=== PATIENT | female | born 1945 | race Caucasian/White ===

== ENCOUNTER → 2023-11-28 14:15 | Outpatient (REF) | payer MEDICARE, OTHER, SELFPAY | LOC: WDC 14:15 | PROVIDERS: ATTENDING PHYSICIAN Obstetrics & Gynecology; FAMILY PHYSICIAN Internal Medicine | DX: Z12.31 Encounter for screening mammogram for malignant neoplasm of breast (principal) | CPT/HCPCS: 77063; 77067 ==

== ENCOUNTER → 2024-09-16 09:48 | Outpatient (REF) | payer MEDICARE, OTHER, SELFPAY | LOC: RAD 09:48 | PROVIDERS: ATTENDING PHYSICIAN Internal Medicine | DX: R10.9 Unspecified abdominal pain (principal); R07.9 Chest pain, unspecified | CPT/HCPCS: 71046; 76700 ==

== ENCOUNTER → 2024-10-15 09:50 | Outpatient (REF) | payer MEDICARE, OTHER, SELFPAY | LOC: RST 09:50 | PROVIDERS: ATTENDING PHYSICIAN Internal Medicine | DX: K21.9 Gastro-esophageal reflux disease without esophagitis (principal); R07.9 Chest pain, unspecified | CPT/HCPCS: 74221 ==

== ENCOUNTER 2024-11-19 14:24 | Inpatient (IN) | payer MEDICARE, OTHER, SELFPAY ==
[2024-11-19] VITALS (14 sets, daily range): BP systolic 100–148; BP diastolic 62–94; BMI 23.5; BMI 24.8
--- NOTE | 2024-11-19 11:13 | ED.GENMED ---
History of Present Illness
General
Chief Complaint: Heart Rate Problem
Source: patient
Exam Limitations: none
Time Seen by Provider: 11/19/24 11:03
History of Present Illness
History of Present Illness:
79-year-old female presents from GI lab after being noticed to have rapid A-fib upon preoperative evaluation. She has been dealing with indigestion and reflux recently and was set to have an endoscopy today. She saw diesel scoop operator at the [facility] about 3 weeks ago for clearance for a knee replacement she had an EKG performed at that point which was normal. She denies any palpitations chest pain or shortness of breath. She was unaware she was in atrial fibrillation. Never had this
before. She is not anticoagulated. She is typically quite healthy otherwise. No recent excessive caffeine or alcohol ingestion
Phy Exam
Physical Exam
Physical Exam:
General: Well-appearing female no acute respiratory
HEENT: Normocephalic atraumatic
Heart: Tachycardic and irregular
Lungs: Clear no wheeze
Extremities: No cyanosis
Scores
[id number] Score for Afib Stroke Risk
Age in Years (65=0, 65-74=1, >/=75=2): > or = 75
Sex (Female=+1): Female
Congestive Heart Failure History (Yes=+1): No
Hypertension History (Yes=+1): No
Stroke/TIA/Thromboembolism History (Yes=+2): No
Vascular Disease History (Yes=+1): No
Diabetes Mellitus (Yes=+1): No
Score: 3
Anticoagulation Recommendations: Recommend anticoagulation (as validated in nonvalvular fib)
Course
Orders/Labs/Results
Orders:
Orders
11/19/24 10:28
Electrocardiogram (*1) Urgent
Reason for Study: Atrial Fibrillation
EKG- Treatment ONCE
11/19/24 11:11
Diltiazem 125 mg/125 ml Nss [Cardizem] 125 mg in 125 ml .ROUTE .STK-MED
Diltiazem HCl [Cardizem] 25 mg .ROUTE .STK-MED ONE
11/19/24 11:12
Diltiazem HCl [Cardizem] 10 mg IV NOW STA
11/19/24 11:15
Diltiazem 125 mg/125 ml Nss [Cardizem] 125 mg in 125 ml IV PER PROTOCOL
Initial dose in mg/hr, then titrate:: 5
Titrate to keep:: Heart rate 80-100 bpm
Titrate by mg/hr:: 5 mg/hr
Frequency of titrations (minutes):: 15
Maximum dose in mg/hr:: 15
11/19/24 11:20
Complete Blood Count/With Diff Urgent
TSH Reflex To Free T4 Urgent
11/19/24 12:31
Comprehensive Metabolic Panel Urgent
11/19/24 13:28
PTT Urgent
Comment: Obtain baseline before beginning heparin infusion if not already collected
Heparin 3,700 units IV NOW STA
Pharmacy Request to Place See Dose Instructions PO NOW STA
Discontinue all Active Warfarin orders?: Yes
Nursing to Place Non Medication Order As Directed
Physician Order: PTT 6 hours after initial start of Heparin infusion
11/19/24 13:30
Heparin 37349 Units/250 ml 25,000 units in 250 ml IV PER PROTOCOL
Weight to be used for heparin protocol in kilograms (kg):: 62.142
Protocol:: Cardiac Tx/Acute Coronary
PTT Goal Range to be used:: PTT 73 to 111 seconds
Order type:: Initial
INITIAL Infusion Dose (UNITS/KG/hr) & then follow protocol:: 12 units/kg/hr
Infusion Dose in UNITS/hr & then follow protocol (UNITS/hr):: 750
INFUSION RATE in mL/hr & then follow protocol (mL/hr):: 7.5
PTT less than or equal to 64 seconds:: Increase rate by 200 units/hr (+ 2 mL/hr)
PTT 64.1 to 72.9 seconds:: Increase rate by 100 units/hr (+ 1 mL/hr)
PTT 73 to 111 seconds:: Target Range. No change in rate.
PTT 111.1 to 130.9 seconds:: Decrease rate by 100 units/hr (- 1 mL/hr)
PTT 131 to 199.9 seconds:: HOLD for 1 hr. Then decrease rate by 200 units/hr (- 2 mL/hr)
PTT greater than or equal to 200 seconds:: HOLD for 2 hrs & Notify Provider. Then decrease by 200 units/hr (-
2 mL/hr)
Lab follow-up:: Each change, PTT q6h until 2 consecutive are therapeutic. Then PTT
daily.
11/19/24 14:[address] See Dose Instructions IV DIRECTED
Abnormal Lab Results
11/19/24
11:20
MCHC 32.9 L g/dL
(33.0-37.0)
Absolute Monos (auto) 0.7 H 10^3/uL
(0.1-0.6)
Monocytes % 11.0 H %
(1.7-9.3)
11/19/24 11:20
11/19/24 12:31
Vital Signs
Initial and Last Documented VS:
Initial Vital Signs
Temp Pulse Resp BP Pulse Ox
97.9 F 140 16 137/86 98
11/19/24 10:30 11/19/24 10:30 11/19/24 10:30 11/19/24 10:30 11/19/24 10:30
Last Documented Vital Signs
Temp Pulse Resp BP Pulse Ox
98.5 F 100 15 108/81 95
11/19/24 12:00 11/19/24 12:15 11/19/24 12:15 11/19/24 12:00 11/19/24 12:15
MDM/Problems Addressed
Differential Diagnosis Includes:
Patient sent in from GI suite for new diagnosis of atrial fibrillation. EKG on triage shows A-fib with a ventricular rate of 140s. In the room she is 160s. Blood pressure 103/68. Onset unknown not a cardioversion candidate she is stable
otherwise. Fluid bolus ordered ordered Cardizem bolus and infusion. Labs including thyroid pending.
*Critical Care Note
Total Time (30-74mins, 75-104mins- exclusive of procedures): Not Applicable
Update Note
Update Note:
Patient persist to be in A-fib but is more rate controlled. She is requiring 15 mg of diltiazem infusion to rate control. Given high dose of medicine required to keep patient rate controlled will admit to hospital for new onset rapid A-fib.
Heparin ordered hospitalist made aware
ED Attending Note
-
Portions of this chart may have been created with voice recognition software.� Occasional wrong word or��sound alike� substitutions may have occurred due to the inherent limitations of voice recognition software.
Discharge Plan
Departure
Patient Disposition: Admit
Date of Disposition: 11/19/24
Time of Disposition: 13:43
Presentation/result/management discussed w/ accepting MD/DO: Hospitalist
Discharge Problem:
Atrial fibrillation, rapid
Prescriptions:
No Action
pantoprazole 20 mg Tablet,Delayed Release (Dr/Ec)
20 mg PO BID
pravastatin 20 mg Tablet
20 mg PO DAILY
Referrals:
Jil Harris MD [Family Provider] -
Interventions
Interventions:
*Risk Screen - Suicide Last Done: 11/19/24 11:04
*General Assessment Last Done: 11/19/24 11:04
*Neglect/Abuse Screening Last Done: 11/19/24 11:04
*ED- Fall Risk Assessment Last Done: 11/19/24 11:04
*ED COVID-19 Vaccine History Last Done: 11/19/24 11:04
ED- Cardiac Assessment Last Done: 11/19/24 11:04
ED- Pulmonary Assessment Last Done: 11/19/24 11:04
Discharge Date and Time
Print Language: EGYPTIAN
[2024-11-19] MEDS: CARDIZEM 10 MG IV (11:19)
[2024-11-19] MEDS: CARDIZEM 125 IV (11:19)
[2024-11-19 11:33] LABS: % Basophils 0.8 % (0-2); % Eosinophils 1.6 % (0-6); % Immature Granulocytes 0.3 % (0-0.5); % Lymphocytes 39.7 % (20.5-51.1); % Neutrophils 46.6 % (42.2-75.2); Absolute Basophils 0.1 10^3/uL (0-0.2); Absolute Eosinophils 0.1 10^3/uL (0-0.7); Absolute Lymphocytes 2.5 10^3/uL (1.2-3.4); Absolute Monocytes 0.7 10^3/uL (0.1-0.6); Absolute Neutrophils 2.9 10^3/uL (1.4-6.5); Hematocrit 42.9 % (37.0-47.0); Hemoglobin 14.1 g/dL (12.0-16.0); Mean Corp Hgb Conc. 32.9 g/dL (33.0-37.0); Mean Corpuscular Hgb 29.7 pg (27.0-31.0); Mean Corpuscular Volume 90.3 fL (81.0-99.0); Mean Platelet Volume 9.7 fL (7.4-10.4); Nucleated Red Blood Cells % 0 %; Platelet Count 331 10^3/uL (130-400); Red Blood Cell Count 4.75 10^6/uL (4.20-5.40); Red Cell Dist. Width 13.9 % (11.5-14.5); White Blood Cell Count 6.3 10^3/uL (4.8-10.8)
[2024-11-19 12:19] LABS: TSH Reflex To Free T4 1.65 uIU/ml (0.47-4.68)
[2024-11-19 12:53] LABS: ALT (SGPT) 16 U/L (0-35); AST (SGOT) 20 U/L (14-36); Albumin 3.8 g/dl (3.5-5.0); Alkaline Phosphatase 65 U/L (38-126); Blood Urea Nitrogen 13 mg/dl (7-17); Calcium 9.4 mg/dl (8.4-10.2); Carbon Dioxide 26 mmol/L (22-30); Chloride 105 mmol/L (98-107); Estimated Creatinine Clearance 68 ml/min; Glucose 99 mg/dl (70-99); Potassium 4.2 mmol/L (3.5-5.1); Sodium 138 mmol/L (135-145); Total Protein 6.7 g/dl (6.3-8.2); eGFR > 60.00
--- NOTE | 2024-11-19 13:40 | HPS.HSE ---
Family Physician
-
Family Physician: Jil Harris
Chief Complaint
-
atrial fibrillation with RVR
History of Present Illness
Ms. Aliya Madden is a 79 yo woman with hx GERD with plans for EGD today sent to ER from GI lab for finding of afib with RVR.
Patient feels completely asymptomatic. Denies palpitations or shortness of breath. She was going to have EGD for further evaluation of hiatal hernia. She takes BID Protonix at home.
No recent fevers/chills. No headache. No nausea/vomiting/diarrhea. No abdominal pain. No chest pain or shortness of breath.
Medical History
Past Medical History
Past Medical History: Reports GERD and Hypercholesterolemia
Past Surgical History: Reports Orthopedic
Social History
Tobacco: Non-smoker
Alcohol: Occasional
Family History
Family History: Not pertinent
Allergies / Home Medications
Allergies reflects when Allergies were last updated in [email or web address].
Home Medications with original date entered in [email or web address]
Allergy/Medication List:
Allergies
Allergy/AdvReac Type Severity Reaction Status Date / Time
cat dander Allergy wheezing Verified 11/19/24 10:35
Home Medications
pantoprazole 20 mg tablet,delayed release 20 mg PO BID 11/19/24
pravastatin 20 mg tablet 20 mg PO DAILY 11/19/24
Review of Systems
-
History Source: Patient
A 12 point ROS was completed and negative except as noted: Yes
Physical Exam
Vital Signs
Vital Signs
Temp Pulse Resp BP Pulse Ox
98.5 F 100 15 108/81 95
11/19/24 12:00 11/19/24 12:15 11/19/24 12:15 11/19/24 12:00 11/19/24 12:15
Physical Exam
General: No Apparent Distress
HEENT: PERRLA
Respiratory: Clear; No Wheezes
Cardiac: S1/S2 and Irregular Rhythm
GI: Soft and Non Tender
Musculoskeletal: No Edema
Skin: Warm and Dry; No Rash
Neuro: AO x 3
Psych: Calm
Laboratory Results
-
11/19/24 11:20
11/19/24 12:31
Laboratory Results
Total Bilirubin 1.0 mg/dl (0.2-1.3) 11/19/24 12:31
AST 20 U/L (14-36) 11/19/24 12:31
ALT 16 U/L (0-35) 11/19/24 12:31
Alkaline Phosphatase 65 U/L (38-126) 11/19/24 12:31
Data Reviewed
-
Diagnostic Radiology: Report Reviewed by me
Lab Data: Labs Reviewed by me
Impression/Plan
-
Ms. Aliya Madden is a 79 yo woman with hx GERD with plans for EGD today sent to ER from GI lab for finding of afib with RVR.
Triage VS: T 97.9, P 140, RR 16, BP 137/86, SpO2 98%
LABS: WBC 6.3, Hg 14.1, PLT 331, Na 138, K+ 4.2, CO2 26, Cr 0.6, Glucose 99, T. Bili 1.0, AST 20, ALT 16, Alk Phos 65, TSH 1.65
EKG: Afib with RVR @ 164, ST depression V3
MAR: IV Dilt gtt, IV heparin gtt
Atrial Fibrillation with RVR
-new diagnosis
-admit to IVU
-on Dilt @ 15 with HR in 90's
-CHADS2-Vasc score = 3
-IV heparin gtt started
-Cardiology consult
-NPO after MN for possible cardioversion
-TSH WNL
-TTE ordered
-CM consult for Eliquis pricing
HLD
-CALL CENTER SPECIALIST Statin
GERD
-CALL CENTER SPECIALIST PPI
-patient will need to reschedule EGD (and stop blood thinner beforehand)
DVT PPx Heparin gtt
FULL CODE
[2024-11-19] MEDS: HEPARIN 25000 UNITS/250 ML IV (13:46)
[2024-11-19] MEDS: HEPARIN 3700 UNITS IV (13:46)
--- NOTE | 2024-11-19 13:52 | EDRN ---
hospitalist currently at the pts bedside
[2024-11-19 14:15] LABS: APTT 33.2 Sec (23.4-35.0)
--- NOTE | 2024-11-19 14:34 | CON.CAR ---
Addendum entered and electronically signed by Harsha Lau DO 11/19/24 16:18:
I saw and examined the patient.
The Hoof And Shoe Inspector's note was reviewed and I agree with the note.
Comment:
GENERAL: no acute distress
EYE: sclera anicteric
NECK: Supple, no JVD, no carotid bruit appreciated
ENT: normal nose, moist mucosal membranes
CARDIAC: Regular rate and rhythm, +S1/S2, no murmur, rubs, or gallops
CHEST/PULMONARY: Normal effort, clear breath sounds
ABDOMEN: Soft, without focal tenderness or distention
NEUROLOGICAL: Alert and oriented x3
SKIN: Warm and dry, no rash
PSYCH: Normal and appropriate interaction.
Telemetry shows atrial fibrillation with RVR spontaneous return to sinus rhythm at 1503 on 11/19/2024
EKG AF RVR
Echocardiogram pending
Patient with paroxysmal atrial fibrillation. Unclear if symptomatic. Denies chest pain, shortness of breath, palpitations, lightheadedness, dizziness, near-syncope, syncope, weakness, fatigue, decreased exercise capacity. Patient stated that she
exercised yesterday without limitation. It is unclear if patient had AF prior to endoscopy today or if endoscopic procedure induced AF however, patient reported no symptom change in AF versus out of AF at 1503 today.
Currently on diltiazem drip and heparin drip. [id number]: 3 (age, gender).
Obtain echocardiogram
Transition off of diltiazem/heparin drip to metoprolol succinate 25 mg daily starting tonight with room to increase dosing as tolerated and Eliquis 5 mg twice daily for stroke risk reduction given [id number] scoring.
If patient remains out of AF and stable, tentatively plan for discharge tomorrow with 7-day event monitor to better characterize patient's arrhythmic burden
Obtain records from cardiology visit at [facility]
Original Note:
Consultation
Consultation Request
Date/Time Consultation Performed: 11/19/24
Requesting Provider: Dr. Pino
Performing Provider: Celena Huitron PA-C for Dr. Lau
Reason for Consultation: new afib with RVR
Medical History
-
Chief Complaint: afib noted at time of EGD
History of Present Illness:
Patient is a 79-year-old female with past medical history of hyperlipidemia and GERD who presented to outpatient GI suite for routine EGD and was found to be in atrial fibrillation with RVR and referred to ER. She denies palpitations, chest
discomfort, SOB, lightheadedness. She denies history of cardiac history. She states she was seen several weeks ago by music internship at [facility] as preop eval for upcoming knee replacement and everything was fine. She states she had an EKG which was
'normal.' Denies recent increase in caffeine or alcohol intake. Denies new supplements. Denies history of bleeding issues. Cardiology consulted for evaluation.
PMH:
GERD
HLD
OA
Past Medical History
Past Medical History: Other (in HPI)
Social History
Tobacco: Non-Smoker
Alcohol: Daily (1 glass of wine with dinner)
Personal:
Living: With Family
Family History
Family History: Other ('leaky valve' in father in 70s)
Allergies / Home Medications
Allergy/AdvReac Type Severity Reaction Status Date / Time
cat dander Allergy wheezing Verified 11/19/24 10:35
�Medication �Instructions �Recorded �Confirmed �Type
Lactobac no.2-Bifidobac no.1-S. 1 cap PO DAILY 11/19/24 11/19/24 History
thermo 112.5 billion cell capsule
(Visbiome)
ascorbic acid (vitamin C) 500 mg 500 mg PO DAILY 11/19/24 11/19/24 History
tablet (Vitamin C)
calcium carbonate 500 mg PO DAILY 11/19/24 11/19/24 History
cholecalciferol (vitamin D3) 25 25 mcg PO DAILY 11/19/24 11/19/24 History
mcg (1,000 unit) tablet (Vitamin
D3)
glucosamine-chondroitin 250 mg-200 1 tab PO DAILY 11/19/24 11/19/24 History
mg tablet (Osteo Bi-Flex)
magnesium oxide 400 mg PO DAILY 11/19/24 11/19/24 History
pantoprazole 20 mg tablet,delayed 20 mg PO BID 11/19/24 11/19/24 History
release
pravastatin 20 mg tablet 20 mg PO DAILY 11/19/24 11/19/24 History
vitamin B complex 1 tab PO DAILY 11/19/24 11/19/24 History
Review of Systems
-
History Source: Patient and Family
All other systems: Negative unless noted
Physical Exam
Vital Signs
Temp Pulse Resp BP Pulse Ox
98.5 F 101 24 119/94 96
11/19/24 12:00 11/19/24 14:06 11/19/24 14:06 11/19/24 14:06 11/19/24 14:06
Lab Results
11/19/24 11:20
11/19/24 12:31
Physical Exam
General: No Apparent Distress and Comfortable
HEENT: Normocephalic, Anicteric and Moist Mucous Membranes
Respiratory: Clear and Non Labored Respirations
Cardiac: S1/S2 and Irregular Rhythm
GI: Soft, Non Tender, Non Distended and Normal Bowel Sounds
Musculoskeletal: No Clubbing, No Cyanosis and No Edema
Skin: Warm and Dry
Neuro: AO x 3
Impression / Plan
-
Primary Radio Interference Expert: was seen several weeks ago by [facility] cardiology for preop eval, not followed regularly
Assessment:
Afib with RVR, new diagnosis of unclear duration
GERD
HLD
OA
ECHO 11/19/24: pending
Plan:
-Patient presented for routine outpatient endoscopy and was found to be in A-fib with RVR, new diagnosis of unclear duration, asymptomatic.
-Currently on IV Cardizem gtt at 15
-[id number] score of 3 for age, female. continue IV heparin. Plan to transition to OAC in a.m. will have CM assess cost to patient of eliquis. no history of significant bleeding events
-check echo
-TSH WNL
-plan for CHARLES/CV in AM if does not spontaneously convert to SR. NPO after midnight
-EGD will need to be postponed 1 month if requires CHARLES/CV
-consider OP EP evaluation
-d/w patient and at bedside
Data Reviewed
-
EKG: Tracing Personally Visualized and interpreted
Labs: Labs Reviewed by me
Old Records: Reviewed
--- NOTE | 2024-11-19 15:04 | EDRN ---
this RN called the receiving IVU nurse Rogelio GARCÍA and gave verbal report
--- NOTE | 2024-11-19 16:05 | PTCARENOTE ---
Patient admitted to IVU. Denies chest pain or shortness of breath. NSR in the 70's on telemetry, BP 133/81. Cardizem and Heparin infusing per MAR. Oriented to room and call layton, at bedside
[2024-11-19] MEDS: TOPROL XL 25 MG PO (16:21)
--- NOTE | 2024-11-19 16:27 | PTCARENOTE ---
Converted to NSR. Cardizem gtt stopped, PO Toprol XL given. Will start Eliquis at 1999 and then the Heparin gtt can be discontinued at 1999.
--- NOTE | 2024-11-19 16:34 | CM ---
Reviewed chart. Met with and Mrs. Madden to review discharge plans. She states prior to admission she resides with her spouse in a three story home with three steps to enter. She states she has an elevator to get to e second floor. She
states prior to admission she was independent with ambulation and adls. She states she does not have any DME in the home. She states she has a prescription plan and uses [facility]. Telephone call to [facility], ([phone]) to check on co-pay
for Eliquis 5 mg po bid. She has a $200.00 deductible that has to be met. So her first script would be $477.10. After that he co-pay would be $277.12 until she gets to $2000.00 out of pocket then she would have a zero co-pay. Placed the one month
free coupon in her red discharge folder. Medical work-up in progress. The discharge plan is to return home with her spouse when medically stable.
[2024-11-19] MEDS: PROTONIX 20 MG PO (19:56)
[2024-11-19] MEDS: ELIQUIS 5 MG PO (19:57)
--- NOTE | 2024-11-19 20:07 | PTCARENOTE ---
Heparin gtt d/c'd as ordered and Eliquis given.
--- NOTE | 2024-11-19 22:39 | PTCARENOTE ---
Received pt from [facility]. pt is AAOx4, NSR on monitor. plan is for Echo in AM then d/c. heart sounds audible, radial and DP pulses palpable, Lungs clear, 95% on RA. + BS x4 quadrants, abdomen soft non tender. pt voiding clear yellow urine. call
layton within reach.
[2024-11-20 03:28] VITALS: BP 125/63
--- NOTE | 2024-11-20 03:43 | PTCARENOTE ---
Pt assessment unchanged. TAHIRA on monitor. VSS. pt resting comfortably. labs drawn and sent. call layton within reach.
[2024-11-20 03:54] LABS: Hematocrit 34.2 % (37.0-47.0); Hemoglobin 11.7 g/dL (12.0-16.0); Mean Corp Hgb Conc. 34.2 g/dL (33.0-37.0); Mean Corpuscular Hgb 30.6 pg (27.0-31.0); Mean Corpuscular Volume 89.5 fL (81.0-99.0); Mean Platelet Volume 9.7 fL (7.4-10.4); Platelet Count 270 10^3/uL (130-400); Red Blood Cell Count 3.82 10^6/uL (4.20-5.40); Red Cell Dist. Width 13.8 % (11.5-14.5)
[2024-11-20 04:34] LABS: Blood Urea Nitrogen 15 mg/dl (7-17); Calcium 9.2 mg/dl (8.4-10.2); Carbon Dioxide 24 mmol/L (22-30); Chloride 104 mmol/L (98-107); Estimated Creatinine Clearance 56 ml/min; Glucose 98 mg/dl (70-99); Magnesium 2.1 mg/dl (1.6-2.3); Potassium 4.1 mmol/L (3.5-5.1); Sodium 136 mmol/L (135-145); eGFR > 60.00
[2024-11-20 07:02] VITALS: BP 133/82
[2024-11-20] MEDS: PROTONIX 20 MG PO (07:38)
[2024-11-20] MEDS: PRAVACHOL 20 MG PO (07:38)
[2024-11-20] MEDS: ELIQUIS 5 MG PO (07:38)
[2024-11-20] MEDS: TOPROL XL 25 MG PO (07:38)
--- NOTE | 2024-11-20 07:51 | W.PN.CARDCBS ---
Addendum entered and electronically signed by Celena Huitron PA-C 11/20/24 13:18:
Reviewed records obtained from prior cardiology visit with [facility] Dr. Saucedo. Plan for left TKR with Dr. Dasilva. By EKG was in normal sinus rhythm on date of visit 10/29/2024. She was felt to be stable from cardiovascular
standpoint for upcoming knee replacement surgery without additional testing.
[facility] office staff will place 7-day Bardy monitor today prior to discharge to assess for outpatient burden of A-fib given patient asymptomatic
Echo with preserved EF.
Okay for discharge. d/w nursing
Addendum entered and electronically signed by Alison Antunez DO 11/20/24 10:31:
I saw and examined the patient.
The Receiving Lead's note was reviewed and I agree with the note.
Comment: Patient was seen and examined. She is feeling well and anxious to go home. Offers no complaints.
General: No acute distress, AAOX3
Neck: Negative JVD
Heart: Regular, Negative S3 positive S1/S2, Negative S4, No murmur
Lungs: CTA b/l, negative wheezes/rales/rhonchi
Abd: Positive BS, NT/ND, neg rebound/rigidity/guarding
Ext: Negative cyanosis/clubbing/edema
Plan:
-Patient presented for routine outpatient endoscopy and was found to be in A-fib with RVR, new diagnosis of unclear duration, asymptomatic.
-spontaneously converted to SR last evening on IV cardizem gtt
-started on eliquis 5mg BID
-for echo today
-she can be rescheduled for OP EGD. she is planned for knee replacement surgery 12/23/24 and as greater than 30 days post admission felt to be ok to proceed as scheduled. Okay to hold Eliquis 2 days before and day of EGD and resume once safe for post
procedure.
-will attempt to obtain records from automation operator at [facility] who she saw for preop clearance. she plans to follow with [facility] moving forward
-ok for DC to home post echo
-OP cardiac follow up arranged
-d/w nursing
Original Note:
Today's Communication / Plan
-
in SR
toprol 25mg daily
eliquis 5mg BID
echo today
OP cardiac follow up arranged
Impression / Plan
-
Primary Home Based Assistant: was seen several weeks ago by [facility] cardiology for preop eval, not followed regularly
Assessment:
Afib with RVR, new diagnosis of unclear duration
GERD
HLD
OA
ECHO 11/20/24: pending
Plan:
-Patient presented for routine outpatient endoscopy and was found to be in A-fib with RVR, new diagnosis of unclear duration, asymptomatic.
-spontaneously converted to SR last evening on IV cardizem gtt
-started on eliquis 5mg BID
-for echo today
-she can be rescheduled for OP EGD. she is planned for knee replacement surgery 12/23/24 and as greater than 30 days post admission felt to be ok to proceed as scheduled
-will attempt to obtain records from automation operator at [facility] who she saw for preop clearance. she plans to follow with [facility] moving forward
-ok for DC to home post echo
-OP cardiac follow up arranged
-d/w nursing
Progress Note - Home Based Assistant
Subjective
Date of Service: November 20, 2024
no issues overnight
Objective
Labs:
11/20/24 03:35
11/20/24 03:35
Labs
Hgb 11.7 g/dL (12.0-16.0) L 11/20/24 03:35
Hct 34.2 % (37.0-47.0) L 11/20/24 03:35
Plt Count 270 10^3/uL (130-400) 11/20/24 03:35
APTT Cancelled 11/19/24 19:46
Sodium 136 mmol/L (135-145) 11/20/24 03:35
Potassium 4.1 mmol/L (3.5-5.1) 11/20/24 03:35
BUN 15 mg/dl (7-17) 11/20/24 03:35
Creatinine 0.7 mg/dL (0.6-1.0) 11/20/24 03:35
Glucose 98 mg/dl (70-99) 11/20/24 03:35
Vital Signs and I&O:
Vital Signs
Temp Pulse Resp BP Pulse Ox
97.7 F 69 20 133/82 97
11/20/24 07:02 11/20/24 07:38 11/20/24 07:02 11/20/24 07:38 11/20/24 07:02
Vital Signs
Temp Pulse Resp BP Pulse Ox
97.7 F 69 20 133/82 97
11/20/24 07:02 11/20/24 07:38 11/20/24 07:02 11/20/24 07:38 11/20/24 07:02
Physical Exam
Physical Exam
GEN: No distress, awake, alert, oriented x3
HEENT: supple, anicteric, mmm, eomi
LUNGS: CTA B/L, no wheezes/rales
CV: Reg, S1/S2, no murmur
ABD: soft, BS+, NT/ND
EXT: No cyanosis, clubbing, edema
NEURO: Gross non-focal
SKIN: Warm, pink, dry. No rash
--- NOTE | 2024-11-20 09:36 | PTCARENOTE ---
Pt is AOx3, no complaints of pain or discomfort. VSS, SR on tele monitor. Independent OOB. Pt scheduled for ECHO today. Call layton within reach.
--- NOTE | 2024-11-20 10:25 | CM ---
Reviewed chart. Met with Mrs. Madden to review discharge plans. She states she is feeling well and maybe able to go home soon. Telephone call to [facility] to check co-pay for Eliquis 5 mg po bid. Her co-pay for the first script would be $277.10
because she has a $200.00 deductible. Her next script would be less. She is agreeable to the co-pay. Reviewed free one month coupon with her. Prior to admission she resides with her spouse in a three story home with three steps to enter. She has
an elevator to get to the second floor. Prior to admission she was independent with ambulation and adls. She does not have any DME in the home. She has a prescription plan with [facility]. Medical work-up in progress. The discharge plan is to return
home with spouse when medically stable.
[2024-11-20 11:07] VITALS: BP 139/77
--- NOTE | 2024-11-20 13:43 | W.PN.HOSP.TC ---
Today's Communication/Plan
-
dc home
Assessment / Plan
Assessment / Plan
Ms. Aliya Madden is a 79 yo woman with hx GERD with plans for EGD today sent to ER from GI lab for finding of afib with RVR.
Echo: Normal left ventricular systolic function. Left ventricular ejection fraction
is 55-60% by volumetric assessment.
Normal regional wall motion.
Mild concentric left ventricular hypertrophy.
Normal diastolic function.
Normal right ventricular size and function.
Thickened mitral valve leaflets with mild mitral regurgitation
Trivial tricuspid regurgitation
Trileaflet mildly sclerotic aortic valve without stenosis or regurgitation
No evidence to suggest pulmonary hypertension
No pericardial effusion
No prior study available for comparison
Atrial Fibrillation with RVR
-Pt now back in NSR and has been cleared to dc. Confirmed with cardio that they would like EKG prior to dc, they placed order. Reviewed NL
Recommend limit driving until cleared by cardio
HLD
-BILINGUAL BRANCH MANAGER Statin
GERD
-BILINGUAL BRANCH MANAGER PPI
-patient will need to reschedule EGD (and stop blood thinner beforehand)
DVT PPx Heparin gtt
FULL CODE
dc now
see dictated note
Anticipated Discharge: Today
Subjective/Interval History
-
Date of Service: November 20, 2024
Feels well, anxiously awaiting dc
Objective Data
-
Labs:
Laboratory Results
11/20/24
03:35
WBC 5.0
Hgb 11.7 L
Hct 34.2 L
Plt Count 270
Sodium 136
Potassium 4.1
Chloride 104
Carbon Dioxide 24
BUN 15
Creatinine 0.7
Glucose 98
Calcium 9.2
Vital Signs:
Vital Signs
Temp Pulse Resp BP Pulse Ox
98.3 F 69 20 139/77 96
11/20/24 11:08 11/20/24 12:00 11/20/24 11:08 11/20/24 11:07 11/20/24 11:08
Review of Systems
-
History Source: Patient and Family ( at bedside)
Constitutional: Reports No Symptoms; Denies Fever
EENT: Reports No Symptoms Reported
Respiratory: Reports No Symptoms
Cardiac: Reports No Symptoms; Denies Chest Pain or Palpitations
Abdomen/GI: Reports No Symptoms
Genitourinary: Reports No Symptoms
Physical Exam
-
General: Well Developed, Well Nourished and No Apparent Distress
HEENT: Normocephalic, Atraumatic and Moist Mucous Membranes
Respiratory: Clear to Auscultation; Negative Wheezes, Rales or Rhonchi
Cardiac: Regular Rhythm and S1/S2
GI: Soft, Nontender and Nondistended
Musculoskeletal: No Clubbing, No Cyanosis and No Edema
Skin: Warm and Dry
Neuro: Awake, Alert and Oriented
[2024-11-20 13:58] VITALS: BP 151/82
--- NOTE | 2024-11-20 14:04 | W.DS.TRANS ---
DC Summary - Shade Classifier
-
Discharge Instructions:
Discharge Diagnosis/Procedures atrial fibrillation
Diet Low Cholesterol
Activity As tolerated
Driving Restrictions As prior to admission
Bathing Restrictions None
Instructions:
Stand-Alone Forms:
Changes to Home Medications: Yes
Discharge Medications:
DC Medications w/original date entered in [employer]
Lactobac no.2-Bifidobac no.1-S. thermo 112.5 billion cell capsule (Visbiome) 1 cap PO DAILY 11/19/24
ascorbic acid (vitamin C) 500 mg tablet (Vitamin C) 500 mg PO DAILY 11/19/24
calcium carbonate 500 mg PO DAILY 11/19/24
cholecalciferol (vitamin D3) 25 mcg (1,000 unit) tablet (Vitamin D3) 25 mcg PO DAILY 11/19/24
glucosamine-chondroitin 250 mg-200 mg tablet (Osteo Bi-Flex) 1 tab PO DAILY 11/19/24
magnesium oxide 400 mg PO DAILY 11/19/24
pantoprazole 20 mg tablet,delayed release 20 mg PO BID 11/19/24
pravastatin 20 mg tablet 20 mg PO DAILY 11/19/24
vitamin B complex 1 tab PO DAILY 11/19/24
apixaban 5 mg tablet (Eliquis) 5 mg PO BID #60 tabs 11/20/24
metoprolol succinate 25 mg tablet,extended release 24 hr 25 mg PO DAILY #30 tabs 11/20/24
Home Medication Changes
Eliquis and Toprol XL
Pending Results: No
== END 2024-11-20 14:30 | disposition home or self-care (01) | DRG 310 ==
LOC: IVU 14:24
PROVIDERS: Physician Assistant; ADMITTING PHYSICIAN Student in an Organized Health Care Education/Training Program; ATTENDING PHYSICIAN Internal Medicine; EMERGENCY PHYSICIAN Emergency Medicine; FAMILY PHYSICIAN Internal Medicine; OTHER PHYSICIAN Internal Medicine Cardiovascular Disease
DX: I48.0 Paroxysmal atrial fibrillation (principal); K21.9 Gastro-esophageal reflux disease without esophagitis; E78.00 Pure hypercholesterolemia, unspecified; M17.12 Unilateral primary osteoarthritis, left knee; K44.9 Diaphragmatic hernia without obstruction or gangrene; Z79.899 Other long term (current) drug therapy
CPT/HCPCS: 71046; 80048; 80053; 83735; 84443; 85025; 85027; 85730; 93005; 93306; 96365; 96366; 96367; 99284; G0378

== ENCOUNTER 2024-11-27 23:49 | Emergency (ER) | payer MEDICARE, OTHER, SELFPAY ==
[2024-11-28] VITALS (9 sets, daily range): BP systolic 92–164; BP diastolic 59–102; BMI 25.1
[2024-11-28 00:31] LABS: % Basophils 0.7 % (0-2); % Eosinophils 1.6 % (0-6); % Immature Granulocytes 1.1 % (0-0.5); % Lymphocytes 31.4 % (20.5-51.1); % Monocytes 8.8 % (1.7-9.3); % Neutrophils 56.4 % (42.2-75.2); Absolute Basophils 0.1 10^3/uL (0-0.2); Absolute Eosinophils 0.1 10^3/uL (0-0.7); Absolute Immature Granulocytes 0.1 10^3/uL (0-0.05); Absolute Lymphocytes 2.6 10^3/uL (1.2-3.4); Absolute Monocytes 0.7 10^3/uL (0.1-0.6); Absolute Neutrophils 4.6 10^3/uL (1.4-6.5); Hematocrit 39.2 % (37.0-47.0); Hemoglobin 13.3 g/dL (12.0-16.0); Mean Corp Hgb Conc. 33.9 g/dL (33.0-37.0); Mean Corpuscular Hgb 30.3 pg (27.0-31.0); Mean Corpuscular Volume 89.3 fL (81.0-99.0); Mean Platelet Volume 9.5 fL (7.4-10.4); Nucleated Red Blood Cells % 0 %; Platelet Count 302 10^3/uL (130-400); Red Blood Cell Count 4.39 10^6/uL (4.20-5.40); Red Cell Dist. Width 13.5 % (11.5-14.5); White Blood Cell Count 8.2 10^3/uL (4.8-10.8)
[2024-11-28 00:45] LABS: ALT (SGPT) 17 U/L (0-35); AST (SGOT) 23 U/L (14-36); Albumin 4.3 g/dl (3.5-5.0); Alkaline Phosphatase 64 U/L (38-126); Blood Urea Nitrogen 18 mg/dl (7-17); Calcium 9.4 mg/dl (8.4-10.2); Carbon Dioxide 26 mmol/L (22-30); Chloride 96 mmol/L (98-107); Glucose 113 mg/dl (70-99); Potassium 3.8 mmol/L (3.5-5.1); Sodium 129 mmol/L (135-145); Total Protein 7.5 g/dl (6.3-8.2); eGFR > 60.00
[2024-11-28 00:48] LABS: Troponin I < 0.012 ng/ml
--- NOTE | 2024-11-28 04:13 | ED.GENMED ---
History of Present Illness
General
Chief Complaint: Heart Rate Problem
Source: patient and family
Exam Limitations: none
Time Seen by Provider: 11/28/24 03:48
Nursing documentation reviewed up to this point in time: agreed with
History of Present Illness
History of Present Illness:
Pleasant 79-year-old female presents to the emergency department with heart palpitations. She states that these began around 10 PM. It was reminiscent of her previous episode of atrial fibrillation. After that she noticed her watch was given
indication that she was having an irregular rhythm so she came into the emergency department. Upon arrival she was found to be in atrial fibrillation on initial EKG. She was in the waiting room for a good while and felt that her heart rate was
back to normal. She was transferred to her room at this time. She unfortunately went back into atrial fibrillation. Currently she is asymptomatic and in A-fib. Denies chest pain or shortness of breath.
Review of Systems
Review of Systems
Allergies reviewed?: Yes
All Other Systems: Not applicable
Constitutional: Reports no symptoms
EENT: Reports no symptoms
Respiratory: Reports no symptoms
Cardiac: Reports palpitations
ABD/GI: Reports no symptoms
: Reports no symptoms
Musculoskeletal: Reports no symptoms
Skin: Reports no symptoms
Neurological: Reports no symptoms
Endocrine: Reports no symptoms
Hematologic/Lymphatic: Reports no symptoms
Psychiatric: Reports no symptoms
Phy Exam
General Physical Exam
General Presentation: well appearing and no apparent distress
General Skin: warm and dry
General Habitus: normal
General Mental: alert
General Hydration: appears well hydrated
ENT Exam
ENT Exam: EOMI, pharynx normal, neck supple and normocephalic
Eye Exam
Eye Exam: PERRL, cornea clear and conjunctiva normal
Cardiovascular Exam
Cardiovascular Exam: no edema, no murmur, irregularly irregular and tachycardia
Pulmonary Exam
Pulmonary Exam: lungs clear, no respiratory distress, no rales, no crackles, no rhonchi, no stridor, no wheezing and no cough
Gastrointestinal Exam
Gastrointestinal Exam: normal bowel sounds, non tender, soft, no organomegaly, no pulsatile mass and non distended
Neurological Exam
Neurological Exam: alert, oriented x3, no motor deficits and speech normal
Musculoskeletal Exam
Musculoskeletal Exam: full ROM and no edema
Skin Exam
Skin Exam: normal color, warm/dry, no rash and no petechia
Psychiatric Exam
Psychiatric Exam: normal mood/affect
Course
Orders/Labs/Results
Orders:
Orders
11/27/24 23:53
Electrocardiogram (*1) Urgent
Reason for Study: Chest Pain
EKG- Treatment ONCE
11/28/24
Electrocardiogram (*1) Stat
Reason for Study: Chest Pain
Comment: DONE
11/28/24 00:18
Complete Blood Count/With Diff Urgent
Comprehensive Metabolic Panel Urgent
Troponin I Urgent
11/28/24 03:09
EKG [Electrocardiogram (*1)] Urgent
Reason for Study: Palpitations
Other Reason for Exam: thinks a fib converted
11/28/24 03:10
EKG- Treatment ONCE
11/28/24 04:12
Diltiazem HCl [Cardizem] 17 mg IV NOW STA
11/28/24 04:15
Diltiazem 125 mg/125 ml Nss [Cardizem] 125 mg in 125 ml IV PER PROTOCOL
Initial dose in mg/hr, then titrate:: 5
Titrate to keep:: Heart rate 80-100 bpm
Titrate by mg/hr:: 5 mg/hr
Frequency of titrations (minutes):: 15
Maximum dose in mg/hr:: 15
Abnormal Lab Results
11/28/24
00:18
Abs Immat Gran (auto) 0.1 H 10^3/uL
(0-0.05)
Absolute Monos (auto) 0.7 H 10^3/uL
(0.1-0.6)
Immature Gran % 1.1 H %
(0-0.5)
Sodium 129 L mmol/L
(135-145)
Chloride 96 L mmol/L
(98-107)
BUN 18 H mg/dl
(7-17)
Glucose 113 H mg/dl
(70-99)
11/28/24 00:18
11/28/24 00:18
Vital Signs
Initial and Last Documented VS:
Initial Vital Signs
Temp Pulse Resp BP Pulse Ox
98.1 F 141 22 164/102 98
11/28/24 00:00 11/28/24 00:00 11/28/24 00:00 11/28/24 00:00 11/28/24 00:00
Last Documented Vital Signs
Temp Pulse Resp BP Pulse Ox
98.1 F 72 23 105/76 98
11/28/24 00:00 11/28/24 04:48 11/28/24 04:48 11/28/24 04:48 11/28/24 04:48
*Critical Care Note
Total Time (30-74mins, 75-104mins- exclusive of procedures): Not Applicable
Update Note
Update Note:
Spoke with Dr. Hawkins, cardiology. After discussing the case, he recommended the patient be discharged home to follow-up with Dr. Gomez. She will continue to take her Eliquis and her metoprolol. She will take an additional metoprolol should she
go back into A-fib. Currently patient is in sinus rhythm again. She keeps fluctuating [id number] between controlled A-fib and sinus rhythm. She has been taking Eliquis. She is rate controlled and will be discharged home in sinus rhythm at
this point
ED Attending Note
-
Portions of this chart may have been created with voice recognition software.� Occasional wrong word or��sound alike� substitutions may have occurred due to the inherent limitations of voice recognition software.
Discharge Plan
Departure
Patient Disposition: Home (Routine Discharge)
Date of Disposition: 11/28/24
Time of Disposition: 06:07
Patient with high blood pressure during this ER visit?: Yes
Condition: Good
Discharge Problem:
Atrial fibrillation, rapid
Instructions: Atrial Fibrillation (DC), Palpitations (DC)
Prescriptions:
No Action
pantoprazole 20 mg Tablet,Delayed Release (Dr/Ec)
20 mg PO BID
pravastatin 20 mg Tablet
20 mg PO DAILY
calcium carbonate 500 mg calcium (1,250 mg) Tablet
500 mg PO DAILY
ascorbic acid (vitamin C) [Vitamin C] 500 mg Tablet
500 mg PO DAILY
vitamin B complex Tablet
1 tab PO DAILY
glucosamine-chondroitin [Osteo Bi-Flex] 250-200 mg Tablet
1 tab PO DAILY
cholecalciferol (vitamin D3) [Vitamin D3] 25 mcg (1,000 unit) Tablet
25 mcg PO DAILY
Visbiome 112.5 billion cell Capsule
1 cap PO DAILY
magnesium oxide 400 mg magnesium Capsule
400 mg PO DAILY
Eliquis 5 mg Tablet
5 mg PO BID Qty: 60 3RF
metoprolol succinate 25 mg tablet extended release 24 hr
25 mg PO DAILY
Patient Comments:
Pt took extra of Metoprolol 2314 prior coming into ER
Referrals:
Jil Harris MD [Family Provider] -
Harsha Lau DO [Active] - Next open appointment
Activity Restrictions/Additional Instructions:
It was a pleasure meeting you and taking part in your care. We hope for your continued healing and wellness.
Please read discharge instructions in their entirety. However, they are for general education and may not describe your exact diagnosis at discharge. Information on your ER visit and medical conditions were discussed with you along with appropriate
follow up information...
If indicated, please take your medications as instructed and indicated on discharge paperwork.
Please schedule a follow up appointment as directed. Call to schedule an appointment
Please return to the emergency department with ANY change in, persisting, or worsening of symptoms. If any of your symptoms do not improve, or persist, or become more severe within 6-12 hours, please return to the emergency department for further
care.
Please return to the emergency department if you develop a headache, neck pain/stiffness, fever greater than 100.4F, chest pain, shortness of breath, persistent nausea, vomiting, slurred speech, difficulty walking, numbness/tingling, weakness, signs
of infection or any other symptoms that are worrisome to you.
If you have any questions or concerns please do not hesitate to call the Hospital at or E-mail me directly at [email or web address]
Interventions
Interventions:
*Risk Screen - Suicide Last Done: 11/28/24 00:00
*General Assessment Last Done: 11/28/24 03:58
*Neglect/Abuse Screening Last Done: 11/28/24 04:55
*ED- Fall Risk Assessment Last Done: 11/28/24 03:57
*ED COVID-19 Vaccine History Last Done: 11/28/24 03:56
ED- Cardiac Assessment Last Done: 11/28/24 04:05
ED- Pulmonary Assessment Last Done: 11/28/24 04:05
Discharge Date and Time
Print Language: BELARUSIAN
[2024-11-28] MEDS: CARDIZEM 17 MG IV (04:36)
[2024-11-28] MEDS: CARDIZEM 125 IV (04:45)
== END 2024-11-28 07:22 | disposition home or self-care (01) ==
LOC: EMR 23:49
PROVIDERS: EMERGENCY PHYSICIAN Student in an Organized Health Care Education/Training Program; FAMILY PHYSICIAN Internal Medicine
DX: I48.91 Unspecified atrial fibrillation (principal); Z79.01 Long term (current) use of anticoagulants; Z79.899 Other long term (current) drug therapy
CPT/HCPCS: 96374; 99284; 80053; 84484; 85025; 93005

== ENCOUNTER → 2024-12-10 14:14 | Outpatient (REF) | payer MEDICARE, OTHER, SELFPAY | LOC: WDC 14:14 | PROVIDERS: ATTENDING PHYSICIAN Obstetrics & Gynecology; FAMILY PHYSICIAN Internal Medicine | DX: Z12.31 Encounter for screening mammogram for malignant neoplasm of breast (principal); Z78.0 Asymptomatic menopausal state | CPT/HCPCS: 77063; 77067 ==

== ENCOUNTER → 2025-01-01 22:00 | Outpatient (REF) | payer MEDICARE, OTHER, SELFPAY | LOC: DHSLP 22:00 | PROVIDERS: ATTENDING PHYSICIAN Internal Medicine Cardiovascular Disease; FAMILY PHYSICIAN Internal Medicine | DX: G47.30 Sleep apnea, unspecified (principal); R06.83 Snoring; I48.91 Unspecified atrial fibrillation; E78.5 Hyperlipidemia, unspecified; K21.9 Gastro-esophageal reflux disease without esophagitis | CPT/HCPCS: 95800 ==

== ENCOUNTER → 2025-01-27 10:02 | Outpatient (REF) | payer MEDICARE, OTHER, SELFPAY ==
[2025-01-27 10:39] LABS: % Basophils 0.5 % (0-2); % Eosinophils 0.8 % (0-6); % Immature Granulocytes 0.2 % (0-0.5); % Lymphocytes 29.9 % (20.5-51.1); % Monocytes 8.7 % (1.7-9.3); % Neutrophils 59.9 % (42.2-75.2); Absolute Eosinophils 0.1 10^3/uL (0-0.7); Absolute Lymphocytes 1.9 10^3/uL (1.2-3.4); Absolute Monocytes 0.5 10^3/uL (0.1-0.6); Absolute Neutrophils 3.7 10^3/uL (1.4-6.5); Hematocrit 37.5 % (37.0-47.0); Hemoglobin 12.3 g/dL (12.0-16.0); Mean Corp Hgb Conc. 32.8 g/dL (33.0-37.0); Mean Corpuscular Hgb 29.7 pg (27.0-31.0); Mean Corpuscular Volume 90.6 fL (81.0-99.0); Mean Platelet Volume 9.8 fL (7.4-10.4); Nucleated Red Blood Cells % 0 %; Platelet Count 241 10^3/uL (130-400); Red Blood Cell Count 4.14 10^6/uL (4.20-5.40); Red Cell Dist. Width 13.6 % (11.5-14.5); White Blood Cell Count 6.2 10^3/uL (4.8-10.8)
[2025-01-27 12:53] LABS: ALT (SGPT) 21 U/L (0-35); AST (SGOT) 28 U/L (14-36); Albumin 4.5 g/dl (3.5-5.0); Alkaline Phosphatase 50 U/L (38-126); Blood Urea Nitrogen 13 mg/dl (7-17); Calcium 9.6 mg/dl (8.4-10.2); Carbon Dioxide 25 mmol/L (22-30); Chloride 106 mmol/L (98-107); Glucose 92 mg/dl (70-99); Potassium 4.5 mmol/L (3.5-5.1); Sodium 137 mmol/L (135-145); Total Bilirubin 1.4 mg/dl (0.2-1.3); Total Protein 7.2 g/dl (6.3-8.2); eGFR > 60.00
== END ==
LOC: SDSPAT 10:02
PROVIDERS: ATTENDING PHYSICIAN Internal Medicine Cardiovascular Disease; FAMILY PHYSICIAN Internal Medicine
DX: I48.91 Unspecified atrial fibrillation (principal); I48.0 Paroxysmal atrial fibrillation
CPT/HCPCS: 36415; 80053; 85025; 86850; 86900; 86901

== ENCOUNTER 2025-02-10 07:55 | Day surgery (SDC) | payer MEDICARE, OTHER, SELFPAY ==
[2025-01-27 10:10] VITALS: BMI 24.9
[2025-02-10] VITALS (16 sets, daily range): BP systolic 100–163; BP diastolic 60–87; BMI 24.8
--- NOTE | 2025-02-10 12:55 | ITS.CL.ABL ---
[facility] - Ablation
Ablation
Procedure Report:
AFIB / A flutter ablation:
Mr. Madden is a very pleasant 79 yr old woman with medical history significant for symptomatic paroxysmal atrial fibrillation is here in the EP lab for atrial fibrillation ablation
Date of Procedure:
02/10/2025
Indications:
Symptomatic paroxysmal atrial fibrillation
Pre-Operative Diagnosis:
Paroxysmal atrial fibrillation
Post-Operative Diagnosis:
Paroxysmal atrial fibrillation
Procedure Performed:
Atrial fibrillation ablation with wide area circumferential ablation (WACA) approach for pulmonary vein isolation
Performing Physician:
David Conrad MD
Assistants:
EP staff
Anesthesia:
See anesthesia records
Detailed Description of the Procedure:
Written informed consent was obtained from the patient after a full explanation of the risks and benefits of the procedure including the risks of sedation and anesthesia.
The patient was brought to the electrophysiology laboratory in stable condition in fasting state. Continuous electrocardiographic and hemodynamic monitoring was initiated.
The initial rhythm was sinus rhythm.
The procedure site was meticulously prepared with surgical scrub and allowed to dry with no pooling. Sterile draping was applied to cover the procedure site. The image intensifier was draped with sterile bag and positioned over the patient. After
infusion of local anesthetic, vascular access was obtained under ultrasound guidance and sheaths were placed over guide wire as detailed below.
The images of the ultrasound of the femoral vessels were stored in patient chart.
Sheath and Catheter Placement:
In the right femoral vein, a 10-[place] sheath was placed under ultrasound guidance for use during the ablation procedure. In the right femoral vein, another 9-Fr sheath was placed for use during intracardiac echo procedure.
The sheaths were upgraded as needed during the case. Intracardiac catheters were positioned using direct fluoroscopic guidance.� ICE catheter was placed in RA. The following catheters / sheaths were placed
Sheaths:
��������� Agilis sheath in right femoral vein upgraded from 10Fr in right femoral vein
��������� 9Fr in right femoral vein
Catheters:
��������� The Affera Sphere 9 catheter -bidirectional D/F� - at locations of HRA, LA and LV.
��������� ICE catheter -AccuNav -� at locations of RA, SVC, and RV.
Heparin was initiated after the access was obtained.
Intracardiac ECHO:
An 8-[place] AcuNav intracardiac ECHO (ICE) probe was advanced through the 9-[place] sheath in the left femoral vein into the right atrium under fluoroscopic and ICE ultrasound image guidance and a baseline ECHO study was performed. The left atrial
size was mildly dilated. There was trace tricuspid regurgitation. The aortic valve was grossly normal. There was normal left ventricular size and function. There is a trace pericardial effusion. The DIANN has baseline normal velocities. The pulmonary
had good flow identified.
During the procedure, ICE was used for monitoring of complications, guidance of trans-septal puncture, monitor the catheter position and tracking ablation lesions. No change in the pericardial space noted throughout the procedure.
Trans-septal Puncture:
Heparin was initiated and infused to maintain appropriate ACT. A J-tipped guidewire was advanced through into the superior vena cava under fluoroscopic and ICE guidance. The Agilis sheath with BRK needle was advanced into the superior vena cava over
the guidewire. The apparatus was withdrawn until it was in contact with the fossa ovalis. The position was adjusted based on fluoroscopy and ultrasound images from ICE. Under fluoroscopic, hemodynamic and ICE ultrasound guidance, left atrium was
cannulated by advancing the needle. Once atrial septum was cannulated, the needle was pulled back and the guide wire was advanced through the needle into the left atrium. The guide wire was advanced into the left superior pulmonary vein. Both the
sheath and the dilator was advanced into the left atrium. The dilator with the needle was withdrawn. Blood was aspirated from the Agilis sheath and arterial blood confirmed. The sheath was flushed. Saline injection noted into the left atrium on ICE.
The waveform of the LA pressure was recorded. The mapping catheter was advanced in the Agilis sheath into the left pulmonary vein.
3D Electroanatomic Mapping:
Using the Sphere 9 Affera catheter advanced through Agilis sheath into the left atrium, an electroanatomic map (EAM) of the left atrium was created using [employer]� mapping system with Prism-1 software. The map was used for localization of catheter
position and tacking of ablation lesions. The EAM of the left atrium showed a total of 4 PVs with a two left and two right sided pulmonary veins with all electrically connected to the body the LA. It showed no significant scar on the posterior wall
of the LA. The LA was dilated in size.
Following the EAM, preparation were made for ablation.
Ablation:
Ablation # 2: Pulmonary vein Isolation:
Glycopyrrolate 0.2 mg was given prior to the placement of ablation.
Pulsed field ablation was performed using an open irrigation, bidirectional, contact sensing, dual energy ablation catheter (Danal d/b/a BilltoMobilea sphere -9) by completing the circumferential lesions around the left and right pulmonary veins achieving pulmonary
vein isolation.
Confirmation of the PVI and bidirectional block:
Following achievement of entrance block at the pulmonary veins, pacing from the Sphere 9 affera catheter in each of the four veins at 20 milliamps for 4 milliseconds showed entrance and exit block.
The LA was mapped with [employer] d/[employer]� mapping system with Prism-1 software in sinus rhythm confirming the line of block at the ablation lesions lines.
�
EP study:
Sinus Node Function: The sinus node functions are within acceptable normal range.
Atrioventricular Kavita Function: �Normal AV conduction noted with normal AV kavita conduction time.
Procedure End
ICE study was done again that showed no epicardial accumulation. No complications noted.
Following the completion of the EP study, catheters were removed. Protamine 40 mg was given at the end of the procedure and ACT was checked repeatedly. The sheaths were removed and hemostasis achieved with VASCADE and manual compression after
acceptable ACT is achieved.
Left atrial Pressure:
Pre-Procedure: Mean LA pressure was 4mmHg
Post-Procedure: Mean LA pressure was 6mmHg
Post-Procedure: Mean RA pressure was 2mmHg
Estimated Blood loss:
<10 cc
Specimens Removed:
None.
Implants / Devices:
None
Urine output:
None
Packs / Drains/ Tubes:
None
Instrument / Sponge Count Correct:
Yes
Complications of the Procedure:
None
Condition of Patient at Time of Transfer:
Hemodynamically stable with no neurological or vascular compromise.
Summary:
��������� Successful atrial fibrillation ablation with circumferential bidirectional line of block at pulmonary vein antra (Pulmonary vein isolation)
Figures from the Procedure:
Figure 1: The electroanatomic mapping (EAM) of the left atrium with bipolar voltage (purple indicates normal electrical activity with red as no myocardial muscle electric activity indicating a line of block or scar.
[2025-02-10 14:52] LABS: ACT-LR - POC > 397 Seconds (116-155)
[2025-02-10 14:52] LABS: ACT-LR - POC > 397 Seconds (116-155)
--- NOTE | 2025-02-10 16:11 | W.PN.UPDATE ---
Update Note
Progress Note Update
79 yo WF s/p PVI (same day). She denies cp, sob, sp diet, voiding, mild sore throat, R fem site vascade c/d/i no HT, soft, EKG SR. She will resume Eliquis tonight. Activity restrictions reviewed. 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 She is for d/c home
after 3pm.
== END 2025-02-10 15:20 | disposition home or self-care (01) ==
LOC: CATH 07:55
PROVIDERS: ATTENDING PHYSICIAN Internal Medicine Cardiovascular Disease; FAMILY PHYSICIAN Internal Medicine
DX: I48.0 Paroxysmal atrial fibrillation (principal); Z79.02 Long term (current) use of antithrombotics/antiplatelets; Z79.899 Other long term (current) drug therapy; E78.2 Mixed hyperlipidemia; K21.9 Gastro-esophageal reflux disease without esophagitis
CPT/HCPCS: C1759; C1733; C1892; 85347; 86900; 86901; 93005; 93656; C1760; C1766; C1769

== ENCOUNTER 2025-05-21 05:53 | Day surgery (SDC) | payer MEDICARE, OTHER, SELFPAY ==
--- NOTE | 2025-04-27 09:58 | CM ---
Demographics: Confirmed
Living situation: independently with
Support Person Post Operatively:
History of
VN:No
SNF: No
Outpatient: Encouraged patient to make appointment for 05/25 at her preferred outpatient PT
Has patient purchased required equipment: walker, Sequential Compression
PCP: Active
Pharmacy: [facility]
Post Operative Discharge Plan: DICK with outpatient PT to be scheduled by patient.
[2025-05-01 11:26] LABS: Hematocrit 40.1 % (37.0-47.0); Hemoglobin 13.2 g/dL (12.0-16.0); Mean Corp Hgb Conc. 32.9 g/dL (33.0-37.0); Mean Corpuscular Volume 92.2 fL (81.0-99.0); Platelet Count 215 10^3/uL (130-400); Red Cell Dist. Width 13.0 % (11.5-14.5)
[2025-05-01 11:44] LABS: Glycohemoglobin (HgbA1c) 5.4 % (4.0-5.6)
[2025-05-01 11:45] LABS: ALT (SGPT) 20 U/L (0-35); AST (SGOT) 28 U/L (14-36); Albumin 4.6 g/dl (3.5-5.0); Alkaline Phosphatase 46 U/L (38-126); Blood Urea Nitrogen 17 mg/dl (7-17); Calcium 9.5 mg/dl (8.4-10.2); Carbon Dioxide 27 mmol/L (22-30); Chloride 102 mmol/L (98-107); Glucose 92 mg/dl (70-99); Potassium 4.5 mmol/L (3.5-5.1); Sodium 136 mmol/L (135-145); Total Protein 7.6 g/dl (6.3-8.2); eGFR > 60.00
[2025-05-01 14:00] VITALS: BMI 24.5
[2025-05-01 14:10] LABS: Vitamin D, 25-OH*** 75.0 ng/mL (30-80)
[2025-05-01 14:43] VITALS: BMI 24.5
--- NOTE | 2025-05-07 08:27 | VNURNOTE ---
Chart reviewed. Per notes, plan is for DC to outpt PT.
No VN referral placed.
--- NOTE | 2025-05-14 10:49 | VNURNOTE ---
Briefly spoke with patient. She tells this author that she per her cardiac clearance, she was advised that she has to stay overnight post-op. She confirmed that she has outpt PT scheduled for 06/01 at [facility]. Surg coordinator and Ortho
scheduled updated and aware.
[2025-05-21] VITALS (15 sets, daily range): BP systolic 99–162; BP diastolic 52–89; PULSE 73; O2SAT 98; BMI 24.5
[2025-05-21] MEDS: TYLENOL 650 MG PO ×4 (06:30→21:22)
[2025-05-21] MEDS: CELEBREX 200 MG PO (06:30)
[2025-05-21] MEDS: NORMOSOL-R/PLASMALYTE-A 1000 IV ×2 (06:31→11:51)
--- NOTE | 2025-05-21 07:53 | W.PN.ORTHO ---
Today's Communication / Plan
-
d/c
Assessment
.
Dressing:
Clean, dry and intact.
Assessment:
Afib-BB tele Eliquis
Plan
.
Surgery / Date: L TKA Dr Xie 05/21/25
DVT Prophylaxis: Other (Eliquis)
Activity:
Out of bed.
PT/OT
Discharge Plan: Home w/ Outpatient PT
Vital Signs and Labs
.
Vital Signs and Labs:
Lab Results
05/01/25 10:54
05/01/25 10:54
Temp Pulse Resp BP Pulse Ox
98.1 F 70 16 162/89 98
05/21/25 06:16 05/21/25 06:16 05/21/25 06:16 05/21/25 06:16 05/21/25 06:16
--- NOTE | 2025-05-21 07:58 | W.DS.TRANS ---
DC Summary - Leather Stamper
-
Discharge Instructions:
Sleep Apnea Risk Low
Discharge Diagnosis/Procedures L TKA Dr. Xie 05/21/25
Diet Regular,As tolerated
Activity With Walker
Driving Restrictions No driving
Bathing Restrictions OK to Shower
Other Services PT
Instructions:
Stand-Alone Forms: SDS Total Hip and Knee D/C
Changes to Home Medications: Yes
Discharge Medications:
DC Medications w/original date entered in [employer]
Lactobac no.2-Bifidobac no.1-S. thermo 112.5 billion cell capsule (Visbiome) 1 cap PO DAILY 11/19/24
pravastatin 20 mg tablet 20 mg PO QPM 11/19/24
vitamin B complex 1 tab PO DAILY 11/19/24
metoprolol succinate 25 mg tablet,extended release 24 hr 25 mg PO Daily 11/28/24
Theracurmin 1 tab PO DAILY 02/10/25
Held on 05/21/25. Instructions: Resume on 05/29/25.
cetirizine 10 mg capsule (Zyrtec) 10 mg PO HS 02/10/25
melatonin 5 mg tablet 5 mg PO HS PRN insomnia 02/10/25
trazodone 50 mg tablet 25 mg PO HS 02/10/25
ascorbic acid (vitamin C) 1,000 mg tablet (Vitamin C) 1,000 mg PO DAILY 04/30/25
coQ10 (ubiquinol) 100 mg capsule 100 mg PO DAILY 04/30/25
Held on 05/21/25. Instructions: Resume on 05/29/25.
glucosamine sulf dipot chlr,msm,chond 550 mg-C 30 mg-son 1 mg capsule (Glucosamine Chondroitin) 1 cap PO BID 04/30/25
Held on 05/21/25. Instructions: Resume on 05/29/25.
magnesium glycinate 100 mg (as glycinate) tablet 400 mg PO QPM 04/30/25
mupirocin 2 % topical ointment 1 applic topical BID infection prevention #1 tube 04/30/25
pantoprazole 40 mg tablet,delayed release (Protonix) 40 mg PO PRN PRN GERD 04/30/25
dexamethasone 4 mg tablet 4 mg PO BID inflammation #6 tabs 05/01/25
gabapentin 300 mg capsule 300 mg PO HS sleep/pain #10 caps 05/01/25
ondansetron 4 mg disintegrating tablet 4 mg PO Q6H PRN n/v #20 tabs 05/01/25
oxycodone 5 mg tablet 5 mg PO Q6H PRN 1 tab moderate pain, 2 tabs severe pain #30 tabs 05/01/25
apixaban 5 mg tablet (Eliquis) 2.5 mg (1/2 x 5 mg) PO BID Blood clot prevention/tx/afib #0 tabs 05/21/25
cholecalciferol (vitamin D3) 50 mcg (2,000 unit) capsule (Vitamin D3) 50 mcg PO DAILY 05/21/25
Home Medication Changes
mupirocin 2 % topical ointment 1 applic topical BID infection prevention #1 tube 04/30/25
pantoprazole 40 mg tablet,delayed release (Protonix) 40 mg PO PRN PRN GERD 04/30/25
dexamethasone 4 mg tablet 4 mg PO BID inflammation #6 tabs 05/01/25
gabapentin 300 mg capsule 300 mg PO HS sleep/pain #10 caps 05/01/25
ondansetron 4 mg disintegrating tablet 4 mg PO Q6H PRN n/v #20 tabs 05/01/25
oxycodone 5 mg tablet 5 mg PO Q6H PRN 1 tab moderate pain, 2 tabs severe pain #30 tabs 05/01/25
apixaban 5 mg tablet (Eliquis) 2.5 mg (1/2 x 5 mg) PO BID Blood clot prevention/tx/afib #0 tabs 05/21/25
cholecalciferol (vitamin D3) 50 mcg (2,000 unit) capsule (Vitamin D3) 50 mcg PO DAILY 05/21/25
Pending Results: No
--- NOTE | 2025-05-21 09:21 | OR.RPT ---
Operative Report
Operative Report
Orthopaedic Surgery Operative Note
DATE OF OPERATION: 05/21/2025
PREOPERATIVE DIAGNOSES: Osteoarthritis, left knee.
POSTOPERATIVE DIAGNOSES: Osteoarthritis, left knee.
OPERATION PERFORMED:
1) Left total knee arthroplasty (CPT 53461)
2) Intraosseous administration of analgesic (CPT 91174)
SURGEON: Rodriguez Xie MD
ASSISTANTS: Billy De La Paz PA-C who helped with patient and limb positioning and retraction
ANESTHESIA: Spinal by anesthesia plus intraoperative infusion of morphine into the tibial metaphysis by Dr. Xie
COMPLICATIONS: None.
ESTIMATED BLOOD LOSS: 20mL
DRAINS: None
TOURNIQUET TIME: 43 minutes.
IMPLANTS:
- Melyssa Persona CR Femur, size 8
- Melyssa Persona tibia base plate, size D
- Melyssa Persona medial constrained articular surface, 11 mm
- DJO [place] bone cement
INDICATIONS: The patient presented to my office with debilitating left knee pain due to osteoarthritis. We reviewed the natural history of this problem, as well as the risks, benefits, and alternatives of various treatment options. The patient
exhausted all nonoperative treatment options and wished to proceed with knee replacement surgery. The patient understood the risks which included, but were not limited to, bleeding, infection, failure to relieve pain, more pain than preop, damage to
blood vessels and nerves, need for reoperation, mechanical failure of the implants, wound healing problems, stiffness, instability, blood clot, pulmonary embolism, myocardial infarction, pneumonia, arrhythmia, CVA, and . The patient accepted
these risks and wished to proceed. All questions were answered, and informed consent was obtained.
PROCEDURE IN DETAIL: The patient was identified in the preoperative holding area. The left knee was identified as the operative site. The patient was taken in the operating room and placed in a supine position on the operating table. Spinal
anesthesia was performed. IV antibiotics and tranexamic acid were administered. An SCD was placed on the right lower extremity. A well-padded tourniquet was placed on the proximal thigh. All bony prominences were well padded. The left lower
extremity was prepped and draped in the usual sterile fashion.
We performed a surgical time-out. An interarticular block was performed with local anesthetic with epinephrine. The limb was exsanguinated with an Esmarch bandage, then the tourniquet was inflated to 250 mmHg. I performed interosseous administration
of morphine-saline solution via a Jamshidi style intraosseous needle into the proximal medial tibial metaphysis as described by Art Suárez MD. This was performed to aid in pain control. A midline skin incision was made followed by a medial
parapatellar arthrotomy. A subperiosteal peel was performed on the medial tibia. I excised part of the infrapatellar fat pad to improve our visualization as well as tissue over anterior femur. The patella was everted and the knee was flexed. I
excised the remnants of the anterior and posterior cruciate ligaments as well as tibial and femoral osteophytes with rongeurs.
The knee was flexed, and the extramedullary tibial cutting guide was aligned. Gregory was aligned at neutral, rotation was centered on the tibial tubercle, and coronal alignment was aligned with the mechanical axis of the tibia and center of the ankle
joint. The cut height was 10mm off the lateral tibia joint surface. The guide was secured into place. The MCL and LCL were protected. The tibia surface was cut. The cut surface was inspected after removal to ensure appropriate height and slope based
on the preoperative plan. The cut was checked with a drop ramirez. It was centered nicely at the ankle.
A drill was used to open the femoral canal. The intramedullary distal femoral cutting guide was inserted into the femur. This was set at 5 degrees +0. This was secured into place with three pins. The cut level was checked with an brooks wing. The
distal femur was cut through the cutting guide. The IM guide was reinserted to double check that the level of resection was flush and in appropriate alignment.
Alvin's line and the transepicondylar axis were marked on the femur. The femoral sizing guide was applied to the anterior femur. Pins were inserted, and the 4-in-1 cutting guide was applied and secured into place. The rotation was compared to
Bertie's line, the transepicondylar axis, and the neutral tibia cut and was found to be appropriate. The width was checked and found to be appropriate and lateralized on the femur. The anterior, posterior, and chamfur cuts were made. A lamina
ingredient scaler helper was used to open the flexion gap, and posterior osteophytes were removed with a curved osteotome. The remnant medial and lateral meniscus were also removed. I prophylactically cauterized the lateral geniculate arteries. A 10mm spacer block
was applied to the flexion gap and was noted to be balanced medially and laterally. The knee was extended, and the block showed symmetric to extension and flexion gaps.
The tibia was exposed and sized. Rotation was set in line with the tibial tubercle and congruent with the femur. The trial was secured into place with two pins. The trial femur was impacted into place, and a trial articular surface was placed. The
knee was taken through range of motion and noted to be stable throughout the arc of motion without gaping or excess tension. The patella tracked centrally throughout the arc of motion without need for further releases. No full thickness cartilage
defects.
The trials were removed. The tibia keel was prepared with the punch and the drill. The bone surfaces were irrigated with sterile saline and dried. The cement was mixed in a vacuum mixer. Cement gun was used to apply cement to the tibial surface and
the undersurface of the tibial implant. Cement was pressurized into the tibial canal and tibia surface. The tibial component was impacted into place. Excess cement was removed. Cement was applied to the femoral surface and the femoral component. The
femoral component was impacted into place, and excess cement removed. A trial articular surface was inserted, and the knee was extended while the cement polymerized. The tourniquet was let down, and meticulous hemostasis was achieved. Dilute
betadine was poured into the wound and allowed to soak for 3 minutes. The knee was irrigated with copious normal saline.
Once the cement was polymerized, the trial articular surface was removed. Any excess cement was removed. The knee was trialed, and the final articular surface was selected and inserted into the tibial locking mechanism. The knee was reduced. A fresh
drape was applied to the surgical field.
The arthrotomy was closed with 0-PDS. Once closed, an interarticular block was performed with local anesthetic with epi. The deep dermal layer was closed with 2-0 PDS, and the subcuticular skin was closed with 3-0 monocryl. A skin glue mesh dressing
was applied to the skin in full flexion. Once this was completely dry, a sterile waterproof dressing was applied.
The anesthesia team performed an adductor canal block in the OR. The patient awoke from anesthesia without any difficulties. The sponge and instrument counts were correct x2 at the end of the case.
Jonatan Xie MD
[2025-05-21] MEDS: ROXICODONE 5 MG PO (09:31)
[2025-05-21] MEDS: DILAUDID 0.5 MG IV ×2 (11:42→17:10)
[2025-05-21] MEDS: TOPROL XL PO (11:52)
[2025-05-21] MEDS: VISBIOME 1 CAP PO (11:55)
[2025-05-21] MEDS: TYLENOL PO (12:03)
[2025-05-21] MEDS: ROXICODONE 10 MG PO (13:54)
[2025-05-21] MEDS: ANCEF 5 IV ×2 (13:55→23:12)
[2025-05-21] MEDS: MAGNESIUM OXIDE 400 MG PO (17:09)
[2025-05-21] MEDS: PRAVACHOL 20 MG PO (17:09)
[2025-05-21] MEDS: ELIQUIS 2.5 MG PO (17:09)
[2025-05-21] MEDS: DECADRON 4 MG IV (17:12)
[2025-05-21] MEDS: COLACE 100 MG PO (21:20)
[2025-05-21] MEDS: BACTROBAN 2% OINTMENT 1 APPLIC NASAL (21:20)
[2025-05-21] MEDS: SENOKOT 17.2 MG PO (21:21)
[2025-05-21] MEDS: DESYREL 25 MG PO (21:23)
[2025-05-21] MEDS: MELATONIN 5 MG PO (21:23)
[2025-05-21] MEDS: ZYRTEC 10 MG PO (21:24)
[2025-05-21] MEDS: PROTONIX 40 MG PO (21:24)
[2025-05-21] MEDS: NEURONTIN 300 MG PO (21:24)
[2025-05-21] MEDS: FLUSH (NSS) 1 FLUSH IV (21:26)
[2025-05-21] MEDS: FLUSH (NSS) 2 FLUSH IV (23:13)
[2025-05-22] MEDS: TYLENOL PO ×2 (00:12→04:40)
[2025-05-22 03:00] VITALS: BP 148/76
[2025-05-22] MEDS: FLUSH (NSS) 2 FLUSH IV (05:22)
[2025-05-22] MEDS: DECADRON 4 MG IV (05:22)
[2025-05-22] MEDS: ROXICODONE 5 MG PO ×2 (07:17→11:25)
[2025-05-22 07:37] VITALS: BP 110/63
[2025-05-22] MEDS: BACTROBAN 2% OINTMENT 1 APPLIC NASAL (07:54)
[2025-05-22] MEDS: COLACE 100 MG PO (07:55)
[2025-05-22] MEDS: ELIQUIS 2.5 MG PO (07:55)
[2025-05-22] MEDS: VISBIOME 1 CAP PO (07:55)
[2025-05-22] MEDS: TYLENOL 650 MG PO ×2 (07:55→11:12)
[2025-05-22] MEDS: SENOKOT 17.2 MG PO (07:56)
--- NOTE | 2025-05-22 08:19 | CM ---
Cm reviewed medical records. CM confirmed that patient's outpatient PT appointment is for 05/25.
PLAN: Outpatient PT.
[2025-05-22 08:52] VITALS: BP 124/64; BP 130/67; PULSE 80; O2SAT 97
[2025-05-22 10:05] VITALS: BP 129/65; BP 136/71; PULSE 69; O2SAT 97
--- NOTE | 2025-05-22 10:14 | W.PN.ORTHO ---
Today's Communication / Plan
-
d/c
Assessment
.
Distal Motor Intact: Yes
Dressing:
Clean, dry and intact.
Assessment:
Afib-BB tele Eliquis--dose BB w/ Midodrine to avoid orthostasis
Plan
.
Surgery / Date: L KORTNEY Xie 05/21/25
DVT Prophylaxis: Other (Eliquis)
Activity:
Out of bed.
PT/OT
Discharge Plan: Home w/ Outpatient PT
Subjective
.
.:
Patient resting comfortably.
Vital Signs and Labs
.
Vital Signs and Labs:
Lab Results
05/01/25 10:54
05/01/25 10:54
Temp Pulse Resp BP Pulse Ox
98.0 F 80 17 110/63 95
05/22/25 07:37 05/22/25 07:37 05/22/25 07:37 05/22/25 07:37 05/22/25 07:37
Non-invasive Hgb result: 12.6
Physical Exam
-
HEENT: No pallor, cyanosis, or jaundice. Throat clear.
NECK: Supple. No JVD.
RESPIRATORY: Lungs clear to auscultation.
CVS: S1, S2 normal. RRR.� No murmur, rub or gallop.
ABDOMEN: Soft, non-tender. No distension. BS+/normal.
EXTREMITIES: strength equal, no calf pain with palpation
SENIOR MERCHANDISER: AOx3. No focal deficits. wet washer machine grossly intact
[2025-05-22] MEDS: TOPROL XL 25 MG PO (10:22)
[2025-05-22 11:09] VITALS: BP 146/81
== END 2025-05-22 11:38 | disposition home or self-care (01) ==
LOC: SDS 05:53
PROVIDERS: ATTENDING PHYSICIAN Orthopaedic Surgery; FAMILY PHYSICIAN Internal Medicine; OTHER PHYSICIAN Internal Medicine Cardiovascular Disease; OTHER PHYSICIAN Physician Assistant Medical
DX: M17.12 Unilateral primary osteoarthritis, left knee (principal)
CPT/HCPCS: 27447; 36415; 73560; 80053; 82306; 83036; 85027; 87070; 97110; 97116; 97162; 97166; 97530; 97535; C1713; C1776